=== PATIENT | male | born 1965 | race Caucasian/White ===

== ENCOUNTER 2018-04-08 20:04 | Emergency (ER) | payer BC ==
[~2018-04-08] VITALS: Ht 177.8 cm; Wt 99.5 kg
[~2018-04-08 20:04] MED LIST: NO HOME MEDS
[2018-04-08 20:25] VITALS: BP 140/80
== END 2018-04-09 01:03 | disposition left against medical advice (07) ==
LOC: ER 20:05
DX: M79.646 Pain in unspecified finger(s) (principal); Z53.21 Procedure and treatment not carried out due to patient leaving prior to being seen by health care provider